=== PATIENT | male | born 1935 | race Caucasian/White ===

== ENCOUNTER 2017-05-04 21:39 | Observation (INO) | payer MEDICARE, OTHER ==
[2017-05-04] MEDS ORDERED: Sodium Chloride 0.9% 10 ML Syringe FLUSH PRN (22:09)
[2017-05-04] MEDS ORDERED: Sodium Chloride 0.9% 1,000 ML IV STA (22:09)
[2017-05-04] MEDS ORDERED: Albuterol/Ipratropium 3.0-0.5 MG/3 ML Neb Soln NEB ONE (22:11)
--- NOTE | 2017-05-04 23:05 | EDM.PDOC ---
ED HPI GENERAL MEDICAL PROBLEM - General Chief Complaint: Gastrointestinal Problem Stated Complaint: BLOOD IN STOOL,FACIAL NUMBNESS Time Seen by Provider: 05/04/17 22:03 Source of Information: Reports: Patient, Family History Limitations: Reports: No Limitations - History of Present Illness INITIAL COMMENTS - FREE TEXT/NARRATIVE: The patient presents with rectal bleeding. The patient was at home and his legs felt week all day. He felt like he had to use the bathroom he went there and nearly fell because he was lightheaded. He had a bowel movement and there was blood. There was blood mixed with stool. He had another bowel movement about 1/2 hour later and there was still blood with stool. He has a history of hemorrhoids. He is on plavix for stents he had placed in 2010. In 2010, after the stents he had a GI bleed. He had to go back to [place] for help. He denies hitting his head and he had no headache. He has COPD and he has shortness of breath but no fever, cough, congestion or runny nose. He has no chest pain and he has no abdominal pain, nausea or vomiting. Onset: Gradual Duration: Hour(s): Severity: Moderate Improves with: Reports: None Worsens with: Reports: None Associated Symptoms: Reports: Shortness of Breath. Denies: Chest Pain, Cough, Fever/Chills, Headaches, Nausea/Vomiting - Related Data Allergies Allergy/AdvReac Type Severity Reaction Status Date / Time No Known Allergies Allergy Verified 05/13/15 10:06 Home Meds: Home Meds Clopidogrel [Plavix] 75 mg PO DAILY 05/04/17 [History] Losartan Potassium [Cozaar] 50 mg PO DAILY 05/04/17 [History] Metoprolol Tartrate 25 mg PO BID 05/04/17 [History] Past Medical History Cardiovascular History: Reports: Hypertension, Stents Respiratory History: Reports: COPD Gastrointestinal History: Reports: GI Bleed, Hemorrhoids Musculoskeletal History: Reports: Arthritis - Past Surgical History GI Surgical History: Reports: Colonoscopy, EGD Social & Family History - Tobacco Use Smoking Status *Q: Former Smoker Used Tobacco, but Quit: Yes Month Tobacco Last Used: 2010 - Caffeine Use Caffeine Use: Reports: Coffee, Soda, Tea - Recreational Drug Use Recreational Drug Use: No ED ROS GENERAL - Review of Systems Review Of Systems: See Below Constitutional: Reports: Weakness. Denies: Fever, Chills HEENT: Reports: No Symptoms Respiratory: Reports: Shortness of Breath. Denies: Cough Cardiovascular: Reports: Lightheadedness. Denies: Chest Pain Endocrine: Reports: No Symptoms GI/Abdominal: Reports: Bloody Stool. Denies: Abdominal Pain, Nausea, Vomiting : Reports: No Symptoms Musculoskeletal: Reports: No Symptoms ED EXAM, GI/ABD - Physical Exam Exam: See Below Exam Limited By: No Limitations General Appearance: Alert, No Apparent Distress Ears: Normal External Exam Nose: Normal Inspection Head: Atraumatic, Normocephalic Neck: Normal Inspection Respiratory/Chest: No Respiratory Distress, Decreased Breath Sounds, Wheezing Cardiovascular: Regular Rate, Rhythm, No Edema, No Murmur GI/Abdominal Exam: Soft, Non-Tender, No Organomegaly, No Mass Rectal (Males) Exam: Hemorrhoids (Multiple hemorrhoids with one that appears to have been bleeding) Back Exam: Normal Inspection Extremities: Normal Inspection EKG INTERPRETATION EKG Date: 05/04/17 Time: 21:57 Rhythm: NSR Rate (Beats/Min): 76 [place]: LAD-Left [place] Deviation P-Wave: Present QRS: Normal ST-T: Normal QT: Normal Course - Vital Signs Last Recorded V/S: Last Vital Signs Temp 95.3 F L 05/04/17 21:51 Pulse 78 05/04/17 21:51 Resp 20 05/04/17 21:51 BP 84/56 L 05/04/17 21:51 Pulse Ox 91 L 05/04/17 21:51 - Orders/Labs/Meds Orders: Active Orders 24 hr Category Date Time Status EKG Documentation Completion [RC] STAT Care 05/04/17 22:09 Active Peripheral IV Care [RC] . DIRECTED Care 05/04/17 22:10 Active RT Aerosol Therapy [RC] ASDIRECTED Care 05/04/17 22:11 Active CXR [Chest 1V Frontal] [CR] Stat Exams 05/04/17 22:36 Taken PATIENT RETYPE [BBK] Stat Lab 05/04/17 21:50 Results TYPE AND SCREEN [BBK] Stat Lab 05/04/17 21:50 Results Sodium Chloride 0.9% [Saline Flush] Med 05/04/17 22:09 Active 10 ml FLUSH ASDIRECTED PRN Peripheral IV Insertion Adult [OM.PC] Stat Oth 05/04/17 22:09 Ordered Medication Orders Sodium Chloride (Saline Flush) 10 ml FLUSH ASDIRECTED PRN PRN Reason: Keep Vein Open Last Admin: 05/04/17 22:25 Dose: 10 ml Labs: Laboratory Tests 05/04/17 05/04/17 05/04/17 Range/Units 21:50 21:50 21:50 WBC 17.81 H (4.23-9.07) K/mm3 RBC 4.53 L (4.63-6.08) M/mm3 Hgb 13.5 L (13.7-17.5) gm/L Hct 41.9 (40.1-51.0) % MCV 92.5 H (79.0-92.2) fl MCH 29.8 (25.7-32.2) pg MCHC 32.2 (32.2-35.5) g/dl RDW Std Deviation 43.0 (35.1-43.9) fL Plt Count 523 H (163-337) K/mm3 MPV 9.9 (9.4-12.3) fl Neut % (Auto) 74.9 H (34.0-67.9) % Lymph % (Auto) 17.3 L (21.8-53.1) % [place] % (Auto) 5.7 (5.3-12.2) % Eos % (Auto) 1.3 (0.8-7.0) Baso % (Auto) 0.4 (0.1-1.2) % Neut # (Auto) 13.32 H (1.78-5.38) K/mm3 Lymph # (Auto) 3.08 (1.32-3.57) K/mm3 [place] # (Auto) 1.02 H (0.30-0.82) K/mm3 Eos # (Auto) 0.24 (0.04-0.54) K/mm3 Baso # (Auto) 0.08 (0.01-0.08) K/mm3 Sodium 140 (136-145) mEq/L Potassium 5.3 H (3.5-5.1) mEq/L Chloride 103 (98-107) mEq/L Carbon Dioxide 24 (21-32) mEq/L Anion Gap 18.3 H (5-15) BUN 35 H (7-18) mg/dL Creatinine 1.7 H (0.7-1.3) mg/dL Est Cr Clr Drug Dosing 35.19 mL/min Estimated GFR (MDRD) 39 (>60) mL/min BUN/Creatinine Ratio 20.6 H (14-18) Glucose 194 H (83-115) mg/dL Calcium 8.8 (8.5-10.1) mg/dL Total Bilirubin 0.6 (0.2-1.0) mg/dL AST 14 L (15-37) U/L ALT 20 (16-63) U/L Alkaline Phosphatase 73 (46-116) U/L Troponin I < 0.017 (0.00-0.056) ng/mL Total Protein 6.1 L (6.4-8.2) g/dl Albumin 3.0 L (3.4-5.0) g/dl Globulin 3.1 gm/dL Albumin/Globulin Ratio 1.0 (1-2) Blood Type O POSITIVE Gel Antibody Screen Negative Meds: Medications Generic Name Dose Route Start Last Admin Trade Name Freq PRN Reason Stop Dose Admin Sodium Chloride 10 ml 05/04/17 22:09 05/04/17 22:25 Saline Flush FLUSH 10 ml ASDIRECTED PRN Administration Keep Vein Open Discontinued Medications Generic Name Dose Route Start Last Admin Trade Name Freq PRN Reason Stop Dose Admin Albuterol/Ipratropium 3 ml 05/04/17 22:11 05/04/17 22:28 Duoneb 3.0-0.5 Mg/3 Ml NEB 05/04/17 22:12 3 ml ONETIME ONE Administration Sodium Chloride 1,000 mls @ 1,000 mls/hr 05/04/17 22:09 05/04/17 23:02 Normal Saline IV 05/04/17 23:08 125 mls/hr .BOLUS STA Infusion - Re-Assessments/Exams Free Text/Narrative Re-Assessment/Exam: 05/04/17 23:07 I ordered an IV NS 500mL bolus, oxygen, duoneb, labs and type and screen. 05/04/17 23:30 His WBC was elevated at 17.81. His CXR shows no infiltrate. I am not sure why that is elevated at this time. His Hgb was 13.5. That is near normal. His platelets are elevated at 523. His K was elevated at 5.3. His anion gap is elevated at 18.3. His creatinine is elevated at 1.7. His glucose was elevated at 194. His troponin is negative. He did not have any more bleeding. I feel he needs to be admitted observation so I can check on his Hgb and see if he is bleeding more. I will admit him to the hospitalist service. Departure - Departure Time of Disposition: 23:45 Disposition: Refer to Observation Condition: Fair Clinical Impression: Shortness of breath GI bleeding Qualifiers: GI bleed type/associated pathology: unspecified peptic ulcer Qualified Code(s) : K27.4 - Chronic or unspecified peptic ulcer, site unspecified, with hemorrhage COPD (chronic obstructive pulmonary disease) Qualifiers: COPD type: unspecified COPD Qualified Code(s): J44.9 - Chronic obstructive pulmonary disease, unspecified - Discharge Information Referrals: Simon Madrid MD [Primary Care Provider] - Forms: ED Department Discharge - My Orders Last 24 Hours: My Active Orders 05/04/17 21:50 PATIENT RETYPE [BBK] Stat TYPE AND SCREEN [BBK] Stat 05/04/17 22:09 EKG Documentation Completion [RC] STAT Sodium Chloride 0.9% [Saline Flush] 10 ml FLUSH ASDIRECTED PRN Peripheral IV Insertion Adult [OM.PC] Stat 05/04/17 22:10 Peripheral IV Care [RC] . DIRECTED 05/04/17 22:11 RT Aerosol Therapy [RC] ASDIRECTED 05/04/17 22:36 CXR [Chest 1V Frontal] [CR] Stat - Assessment/Plan Last 24 Hours: My Active Orders 05/04/17 21:50 PATIENT RETYPE [BBK] Stat TYPE AND SCREEN [BBK] Stat 05/04/17 22:09 EKG Documentation Completion [RC] STAT Sodium Chloride 0.9% [Saline Flush] 10 ml FLUSH ASDIRECTED PRN Peripheral IV Insertion Adult [OM.PC] Stat 05/04/17 22:10 Peripheral IV Care [RC] . DIRECTED 05/04/17 22:11 RT Aerosol Therapy [RC] ASDIRECTED 05/04/17 22:36 CXR [Chest 1V Frontal] [CR] Stat
[2017-05-05] MEDS: Sodium Chloride 0.9% 1,000 ML IV SCH ×2 (03:53→12:42)
--- NOTE | 2017-05-05 07:58 | CR ---
Chest: Portable view of the chest was obtained. Comparison: No prior chest x-ray. Slight scarring is noted within the lateral left costophrenic angle. Lungs otherwise are clear. Heart size is normal. Tortuous thoracic aorta is seen. Bony structures are grossly intact. Impression: 1. Incidental findings. Nothing acute is seen. Diagnostic code #2
--- NOTE | 2017-05-05 15:52 | PCM.PN ---
- General Info Date of Service: 05/05/17 Functional Status: Reports: Ambulating, Urinating - Review of Systems General: Reports: No Symptoms HEENT: Reports: No Symptoms Pulmonary: Reports: No Symptoms Cardiovascular: Reports: No Symptoms Gastrointestinal: Reports: No Symptoms Genitourinary: Reports: No Symptoms Musculoskeletal: Reports: No Symptoms Skin: Reports: No Symptoms Neurological: Reports: No Symptoms Psychiatric: Reports: No Symptoms - Patient Data Vitals - Most Recent: Last Vital Signs Temp 36.8 C 05/05/17 09:41 Pulse 97 05/05/17 09:41 Resp 24 H 05/05/17 09:41 BP 106/66 05/05/17 09:41 Pulse Ox 90 L 05/05/17 10:03 Weight - Most Recent: 70.352 kg I&O - Last 24 Hours: Intake & Output 05/05/17 05/05/17 05/05/17 06:59 14:59 22:59 Intake Total 1260 Balance 1260 Lab Results Last 24 Hours: Laboratory Results - last 24 hr 05/05/17 05/05/17 Range/Units 03:55 10:06 Hgb 11.7 L 11.3 L (13.7-17.5) gm/L Hct 35.5 L 34.3 L (40.1-51.0) % Med Orders - Current: Current Medications Sodium Chloride (Normal Saline) 1,000 mls @ 125 mls/hr IV ASDIRECTED MARGIE Stop: 05/05/17 21:00 Last Admin: 05/05/17 12:42 Dose: 125 mls/hr Sodium Chloride (Saline Flush) 10 ml FLUSH ASDIRECTED PRN PRN Reason: Keep Vein Open Last Admin: 05/04/17 22:25 Dose: 10 ml Discontinued Medications Albuterol/Ipratropium (Duoneb 3.0-0.5 Mg/3 Ml) 3 ml NEB ONETIME ONE Stop: 05/04/17 22:12 Last Admin: 05/04/17 22:28 Dose: 3 ml Sodium Chloride (Normal Saline) 1,000 mls @ 1,000 mls/hr IV .BOLUS STA Stop: 05/04/17 23:08 Last Infusion: 05/04/17 23:02 Dose: 125 mls/hr - Exam Quality Assessment: Supplemental Oxygen, DVT Prophylaxis General: Alert, Oriented, Cooperative, No Acute Distress HEENT: Pupils Equal, Pupils Reactive, EOMI Neck: Supple, Trachea Midline, No JVD Lungs: Normal Respiratory Effort Cardiovascular: Regular Rate, Regular Rhythm GI/Abdominal Exam: Normal Bowel Sounds, Soft, Non-Tender, No Organomegaly, No Distention (Male) Exam: Deferred Back Exam: Normal Inspection Extremities: Normal Inspection Skin: Warm, Dry Neurological: No New Focal Deficit, Normal Gait, Normal Speech Psy/Mental Status: Alert, Normal Affect, Normal Mood - Problem List Review Problem List Initiated/Reviewed/Updated: Yes - Plan Plan:: Impression: GI bleed, hemodynamically stable with remote history Anemia, blood loss; Fe status unknown History of CAD/PCI on plavix Chronic COPD Plan: H/H serially T/C if Hgb<9.0 Gen surg consult with Dr Tinoco Daily labs Home meds Old MR re: CAD/PCI with stents DVT/GI prophylaxis CM/PT/OT consults
[2017-05-05] MEDS ORDERED: Metoprolol Tartrate 25 MG Tab PO SCH (16:00)
[2017-05-05] MEDS ORDERED: LOSARTAN POTASSIUM 50 MG PO SCH (16:00)
[2017-05-05] MEDS: Acetaminophen 325 MG Tab PO PRN (21:16)
--- NOTE | 2017-05-06 15:01 | PCM.PN ---
- General Info Date of Service: 05/06/17 Functional Status: Reports: Pain Controlled, Tolerating Diet, Ambulating, Urinating - Review of Systems General: Reports: No Symptoms HEENT: Reports: No Symptoms Pulmonary: Reports: No Symptoms Cardiovascular: Reports: No Symptoms Gastrointestinal: Reports: No Symptoms Genitourinary: Reports: No Symptoms Musculoskeletal: Reports: No Symptoms Skin: Reports: No Symptoms Neurological: Reports: No Symptoms Psychiatric: Reports: No Symptoms - Patient Data Vitals - Most Recent: Last Vital Signs Temp 36.7 C 05/06/17 08:35 Pulse 78 05/06/17 09:18 Resp 16 05/06/17 08:35 BP 113/58 L 05/06/17 08:35 Pulse Ox 92 L 05/06/17 09:18 Weight - Most Recent: 70.352 kg I&O - Last 24 Hours: Intake & Output 05/06/17 05/06/17 05/06/17 06:59 14:59 22:59 Intake Total 500 360 Balance 500 360 Lab Results Last 24 Hours: Laboratory Results - last 24 hr 05/06/17 05/06/17 Range/Units 09:40 09:40 WBC 14.05 H (4.23-9.07) K/mm3 RBC 3.43 L (4.63-6.08) M/mm3 Hgb 10.3 L (13.7-17.5) gm/L Hct 31.4 L (40.1-51.0) % MCV 91.5 (79.0-92.2) fl MCH 30.0 (25.7-32.2) pg MCHC 32.8 (32.2-35.5) g/dl RDW Std Deviation 41.5 (35.1-43.9) fL Plt Count 331 (163-337) K/mm3 MPV 9.5 (9.4-12.3) fl Neut % (Auto) 85.1 H (34.0-67.9) % Lymph % (Auto) 7.8 L (21.8-53.1) % [place] % (Auto) 5.4 (5.3-12.2) % Eos % (Auto) 1.0 (0.8-7.0) Baso % (Auto) 0.4 (0.1-1.2) % Neut # (Auto) 11.97 H (1.78-5.38) K/mm3 Lymph # (Auto) 1.09 L (1.32-3.57) K/mm3 [place] # (Auto) 0.76 (0.30-0.82) K/mm3 Eos # (Auto) 0.14 (0.04-0.54) K/mm3 Baso # (Auto) 0.05 (0.01-0.08) K/mm3 Manual Slide Review Abnormal smear Sodium 136 (136-145) mEq/L Potassium 4.3 (3.5-5.1) mEq/L Chloride 102 (98-107) mEq/L Carbon Dioxide 26 (21-32) mEq/L Anion Gap 12.3 (5-15) BUN 18 (7-18) mg/dL Creatinine 1.2 (0.7-1.3) mg/dL Est Cr Clr Drug Dosing 48.82 mL/min Estimated GFR (MDRD) 58 (>60) mL/min BUN/Creatinine Ratio 15.0 (14-18) Glucose 126 H (83-115) mg/dL Calcium 8.0 L (8.5-10.1) mg/dL Magnesium 1.7 L (1.8-2.4) mg/dl Med Orders - Current: Current Medications Acetaminophen (Tylenol) 650 mg PO Q4H PRN PRN Reason: Fever Last Admin: 05/05/17 21:16 Dose: 650 mg Metoprolol Tartrate (Lopressor) 12.5 mg PO BID MARGIE Last Admin: 05/06/17 06:50 Dose: 12.5 mg Sodium Chloride (Saline Flush) 10 ml FLUSH ASDIRECTED PRN PRN Reason: Keep Vein Open Last Admin: 05/04/17 22:25 Dose: 10 ml Discontinued Medications Albuterol/Ipratropium (Duoneb 3.0-0.5 Mg/3 Ml) 3 ml NEB ONETIME ONE Stop: 05/04/17 22:12 Last Admin: 05/04/17 22:28 Dose: 3 ml Sodium Chloride (Normal Saline) 1,000 mls @ 1,000 mls/hr IV .BOLUS STA Stop: 05/04/17 23:08 Last Infusion: 05/04/17 23:02 Dose: 125 mls/hr Sodium Chloride (Normal Saline) 1,000 mls @ 125 mls/hr IV ASDIRECTED [facility] Stop: 05/05/17 21:00 Last Admin: 05/05/17 12:42 Dose: 125 mls/hr Metoprolol Tartrate (Lopressor) 25 mg PO BID [facility] Last Admin: 05/05/17 16:43 Dose: Not Given Non-Formulary Medication (Losartan Potassium) 50 mg PO DAILY [facility] Last Admin: 05/05/17 16:44 Dose: Not Given - Exam Quality Assessment: DVT Prophylaxis General: Alert, Oriented, Cooperative, No Acute Distress HEENT: Pupils Equal, Pupils Reactive, EOMI Neck: Supple, Trachea Midline Lungs: Normal Respiratory Effort Cardiovascular: Regular Rate, Regular Rhythm GI/Abdominal Exam: Normal Bowel Sounds, Soft, Non-Tender, No Organomegaly, No Distention (Male) Exam: Deferred Back Exam: Normal Inspection Extremities: Normal Inspection, Normal Range of Motion Skin: Warm Neurological: No New Focal Deficit Psy/Mental Status: Alert, Normal Affect, Normal Mood - Problem List Review Problem List Initiated/Reviewed/Updated: Yes - My Orders Last 24 Hours: My Active Orders 05/05/17 16:45 Metoprolol Tartrate [Lopressor] 12.5 mg PO BID 05/05/17 20:54 Acetaminophen [Tylenol] 650 mg PO Q4H PRN 05/06/17 12:26 Patient Status [ADT] Routine 05/06/17 18:00 HGB [HEMOGLOBIN] [HEME] Routine RED BLOOD CELLS LP [BBK] Routine 05/07/17 05:11 BASIC METABOLIC PANEL,BMP [CHEM] Routine CBC WITH AUTO DIFF [HEME] Routine MG [MAGNESIUM] [CHEM] Routine - Plan Plan:: Impression: GI bleed, hemodynamically stable with remote history Anemia, blood loss; Fe will start empiric treatment 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 Monitor additional 24 hours with drift downward of Hgb; transfuse as needed.
[2017-05-06] MEDS ORDERED: Magnesium Sulfate/Water 2 GM in Premix Bag 1 BAG IV ONE (19:30)
[2017-05-06] MEDS: Acetaminophen 325 MG Tab PO PRN (20:15)
[2017-05-07] MEDS ORDERED: Benzonatate 100 MG Cap PO PRN (08:44)
[2017-05-07] MEDS ORDERED: guaiFENesin/Dextromethorphan 100-10 MG/5 ML Soln 5 ML Cup PO PRN (08:45)
[2017-05-07] MEDS ORDERED: Clopidogrel 75 MG Tab PO SCH (09:00)
[2017-05-07] MEDS ORDERED: FISH OIL PO SCH (09:00)
[2017-05-07] MEDS ORDERED: COLESTIPOL PO SCH (09:00)
[2017-05-07] MEDS ORDERED: UBIDECARENONE PO SCH (09:00)
[2017-05-07] MEDS ORDERED: Doxycycline 100 MG Cap PO SCH (09:00)
[2017-05-07] MEDS ORDERED: [UNRECOGNIZED DRUG - OTHER] PO SCH (09:00)
[2017-05-07] MEDS ORDERED: EPA PO SCH (09:00)
[2017-05-07] MEDS ORDERED: OMEGA PO SCH (09:00)
[2017-05-07] MEDS ORDERED: DHA PO SCH (09:00)
[2017-05-07 09:02] VITALS: BP 123/76
--- NOTE | 2017-05-07 12:06 | PCM.DCSUM1 ---
Discharge Summary - Hospital Course Free Text/Narrative:: 81 year old male who reports a history of GI bleeds; the presentation on this admission was similar to a remote episode. He states that he has had hemorrhoids and had a location in his Colon which bleed in the past. A conservative approach was followed, Hgb was checked; he did not require a blood transfusion during his hospital stay. Antiplatelet therapy was suspended to reconsidered as an outpatient, he has a remote history of PCI and has been on ASA and Plavix which were held; reconsideration for resuming is suggested as an outpatient. the patient did not have his stent card for location and type of stent. However he stated that they were placed over 5-6 years ago. The patient developed a cough and was discharged to home with a prescription for doxycycline and tessalon perles. He is expected to see his PCP as well as gen surg, Dr Irvin as an outpatient. Primary Dx GI bleed, unspecified Anemia, Fe Bronchitis History of CAD/PCI Disposition Home Diet Heart Healthy Meds Resume previous, plavix/ASA on hold--reassess as outpatient Ferrous Sulfate 325 mg daily Doxycycline 100 mg BID Tesalon Perles 100 mg TID prn cough Robitussin DM 10 cc q 6 hours prn cough Follow Up PCP 1-[address] Irvin 1 week - Discharge Data Discharge Date: 05/07/17 Discharge Disposition: Home, Self-Care 01 Condition: Good - Patient Instructions Diet: Heart Healthy Diet Activity: As Tolerated Driving: May Drive Today Showering/Bathing: May Shower Notify Provider of: Fever, Nausea and/or Vomiting - Discharge Plan Prescriptions/Med Rec: Acetaminophen [Tylenol] 650 mg PO Q4H PRN #100 tablet PRN Reason: Fever Benzonatate [Tessalon Perle] 100 mg PO TID PRN #28 capsule PRN Reason: Cough Dextromethorphan/guaiFENesin [Robitussin DM] 10 ml PO Q6H PRN #240 cup PRN Reason: Cough Doxycycline Calcium [IMW: Doxycycline] 100 mg PO BID #14 capsule Ferrous Sulfate 325 mg PO WITHBREAKFAST #100 tablet Home Medications: Home Meds Losartan Potassium [Cozaar] 50 mg PO DAILY 05/04/17 [History] Metoprolol Tartrate 25 mg PO BID 05/04/17 [History] Colestipol [Colestipol HCl] 2 tab PO BID 05/05/17 [History] [place]-3/DHA/Epa/Fish Oil [Fish Oil 1,000 mg Softgel] 1 cap PO DAILY 05/05/17 [ History] Ubidecarenone [Co Q-10] 1 cap PO DAILY 05/05/17 [History] Acetaminophen [Tylenol] 650 mg PO Q4H PRN #100 tablet 05/07/17 [Rx] Benzonatate [Tessalon Perle] 100 mg PO TID PRN #28 capsule 05/07/17 [Rx] Dextromethorphan/guaiFENesin [Robitussin DM] 10 ml PO Q6H PRN #240 cup 05/07/17 [Rx] Doxycycline Calcium [IMW: Doxycycline] 100 mg PO BID #14 capsule 05/07/17 [Rx] Ferrous Sulfate 325 mg PO WITHBREAKFAST #100 tablet 05/07/17 [Rx] Patient Handouts: Anemia, Nonspecific, Gastrointestinal Bleeding Forms: ED Department Discharge Referrals: Bryan Irvin MD [Physician] - (Please call clinic tomorrow and make a follow -up appointment in 1-2 weeks.) Simon Madrid MD [Primary Care Provider] - (Please call clinic tomorrow and make a follow-up appointment in 1-2 weeks.) - Discharge Summary/Plan Comment DC Time >30 min.: No - General Info Functional Status: Reports: Tolerating Diet, Ambulating, Urinating - Review of Systems General: Reports: No Symptoms HEENT: Reports: No Symptoms Pulmonary: Reports: Cough Cardiovascular: Reports: No Symptoms Gastrointestinal: Reports: No Symptoms Genitourinary: Reports: No Symptoms Musculoskeletal: Reports: No Symptoms Skin: Reports: No Symptoms Neurological: Reports: No Symptoms Psychiatric: Reports: No Symptoms - Patient Data Vitals - Most Recent: Last Vital Signs Temp 37.7 C 05/07/17 06:15 Pulse 82 05/07/17 09:00 Resp 18 05/07/17 08:56 BP 123/76 05/07/17 09:00 Pulse Ox 92 L 05/07/17 08:56 Weight - Most Recent: 68.946 kg I&O - Last 24 hours: Intake & Output 05/06/17 05/07/17 05/07/17 22:59 06:59 14:59 Intake Total 810 850 Balance 810 850 Lab Results - Last 24 hrs: Laboratory Results - last 24 hr 05/06/17 05/07/17 05/07/17 Range/Units 18:30 06:42 06:42 WBC 11.23 H (4.23-9.07) K/mm3 RBC 3.54 L (4.63-6.08) M/mm3 Hgb 10.4 L 10.5 L (13.7-17.5) gm/L Hct 32.3 L (40.1-51.0) % MCV 91.2 (79.0-92.2) fl MCH 29.7 (25.7-32.2) pg MCHC 32.5 (32.2-35.5) g/dl RDW Std Deviation 41.2 (35.1-43.9) fL Plt Count 367 H (163-337) K/mm3 MPV 9.9 (9.4-12.3) fl Neut % (Auto) 67.9 (34.0-67.9) % Lymph % (Auto) 20.0 L (21.8-53.1) % [place] % (Auto) 8.4 (5.3-12.2) % Eos % (Auto) 2.8 (0.8-7.0) Baso % (Auto) 0.5 (0.1-1.2) % Neut # (Auto) 7.62 H (1.78-5.38) K/mm3 Lymph # (Auto) 2.25 (1.32-3.57) K/mm3 [place] # (Auto) 0.94 H (0.30-0.82) K/mm3 Eos # (Auto) 0.32 (0.04-0.54) K/mm3 Baso # (Auto) 0.06 (0.01-0.08) K/mm3 Sodium 137 (136-145) mEq/L Potassium 4.2 (3.5-5.1) mEq/L Chloride 103 (98-107) mEq/L Carbon Dioxide 29 (21-32) mEq/L Anion Gap 9.2 (5-15) BUN 12 (7-18) mg/dL Creatinine 1.1 (0.7-1.3) mg/dL Est Cr Clr Drug Dosing 52.41 mL/min Estimated GFR (MDRD) > 60 (>60) mL/min BUN/Creatinine Ratio 10.9 L (14-18) Glucose 95 (83-115) mg/dL Calcium 8.5 (8.5-10.1) mg/dL Magnesium 2.3 (1.8-2.4) mg/dl ORLY Results - Last 24 hrs: Microbiology 05/07/17 08:50 Influenza Type A Antigen Screen - Final Nasopharyngeal Swab - Nare, Left NEGATIVE INFLUENZA A VIRUS AG Influenza Type B Antigen Screen - Final NEGATIVE INFLUENZA B VIRUS AG Med Orders - Current: Current Medications Acetaminophen (Tylenol) 650 mg PO Q4H PRN PRN Reason: Fever Last Admin: 05/06/17 20:15 Dose: 650 mg Benzonatate (Tessalon Perles) 100 mg PO TID PRN PRN Reason: Cough Clopidogrel Bisulfate (Plavix) 75 mg PO DAILY [facility] Doxycycline Hyclate (Vibramycin) 100 mg PO BID [facility] Last Admin: 05/07/17 09:01 Dose: 100 mg Ferrous Sulfate (Ferrous Sulfate) 325 mg PO WITHBREAKFAST [facility] Guaifenesin/Phenylephrine HCl (Robitussin Dm) 10 ml PO Q6H PRN PRN Reason: Cough Metoprolol Tartrate (Lopressor) 12.5 mg PO BID [facility] Last Admin: 05/07/17 09:00 Dose: 12.5 mg Non-Formulary Medication (Colestipol) 2 tab PO BID [facility] Non-Formulary Medication ([place]-3/Dha/Epa/Fish Oil [Fish Oil 1,000 Mg Softgel]) 1 cap PO DAILY [facility] Non-Formulary Medication (Ubidecarenone) 1 cap PO DAILY [facility] Sodium Chloride (Saline Flush) 10 ml FLUSH ASDIRECTED PRN PRN Reason: Keep Vein Open Last Admin: 05/04/17 22:25 Dose: 10 ml Discontinued Medications Albuterol/Ipratropium (Duoneb 3.0-0.5 Mg/3 Ml) 3 ml NEB ONETIME ONE Stop: 05/04/17 22:12 Last Admin: 05/04/17 22:28 Dose: 3 ml Sodium Chloride (Normal Saline) 1,000 mls @ 1,000 mls/hr IV .BOLUS STA Stop: 05/04/17 23:08 Last Infusion: 05/04/17 23:02 Dose: 125 mls/hr Sodium Chloride (Normal Saline) 1,000 mls @ 125 mls/hr IV ASDIRECTED [facility] Stop: 05/05/17 21:00 Last Admin: 05/05/17 12:42 Dose: 125 mls/hr Magnesium Sulfate 2 gm/ Premix 50 mls @ 25 mls/hr IV ONETIME ONE Stop: 05/06/17 21:29 Last Admin: 05/06/17 20:14 Dose: 25 mls/hr Metoprolol Tartrate (Lopressor) 25 mg PO BID [facility] Last Admin: 05/05/17 16:43 Dose: Not Given Non-Formulary Medication (Losartan Potassium) 50 mg PO DAILY [facility] Last Admin: 05/05/17 16:44 Dose: Not Given - Exam Quality Assessment: Reports: DVT Prophylaxis General: Reports: Alert, Oriented, Cooperative, No Acute Distress HEENT: Reports: Pupils Equal, Pupils Reactive, EOMI Neck: Reports: Trachea Midline, No JVD Lungs: Reports: Normal Respiratory Effort Cardiovascular: Reports: Regular Rate, Regular Rhythm GI/Abdominal Exam: Normal Bowel Sounds, No Organomegaly, No Distention (Male) Exam: Deferred Rectal (Males) Exam: Deferred Back Exam: Reports: Normal Inspection Extremities: Normal Inspection, Normal Range of Motion, Non-Tender Skin: Reports: Warm Neurological: Reports: No New Focal Deficit Psy/Mental Status: Reports: Alert, Normal Affect, Normal Mood *Q Meaningful Use (DIS) - VTE *Q VTE Criteria *Q: - Stroke *Q Stroke Criteria *Q: - AMI *Q AMI Criteria *Q:
--- NOTE | 2017-05-08 06:28 | PCM.HP ---
H&P History of Present Illness - General Date of Service: 05/04/17 Admit Problem/Dx: Shortness of breath, GI bleed and COPD Source of Information: Patient History Limitations: Reports: No Limitations - History of Present Illness Initial Comments - Free Text/Narative: The patient presents with rectal bleeding. He says his legs felt week all day. He felt like he had to have a bowel movement this evening and he went and there was 1/2 blood with feces. He went again about 1/2 hour later and he found the same. He felt lightheaded at that time. He has a history of hemorrhoids. He is on plavix for stents in 2010. He had a GI bleed that year also. He has COPD and some shortness of breath with it. He denies fever, cough , congestion or runny nose. He has no chest pain, abdominal pain, nausea or vomiting. He was seen in the ER. His first Hgb was near normal at 13.5. I gave him a breathing treatment for his wheezing. I felt he needed to be admitted. He was admitted to myself and the hospitalist service with the intent of the hospitalist service to take over in the morning. Onset of Symptoms: Reports: Today, Sudden Duration of Symptoms: Reports: Hour(s): Severity: Moderate Improves with: Reports: None Worsens with: Reports: None Associated Symptoms: Reports: Shortness of Breath. Denies: Chest Pain, Cough, Fever/Chills, Headaches, Nausea/Vomiting - Related Data Allergies/Adverse Reactions: Allergies Allergy/AdvReac Type Severity Reaction Status Date / Time No Known Allergies Allergy Verified 05/13/15 10:06 Home Medications: Home Meds Losartan Potassium [Cozaar] 50 mg PO DAILY 05/04/17 [History] Metoprolol Tartrate 25 mg PO BID 05/04/17 [History] Colestipol [Colestipol HCl] 2 tab PO BID 05/05/17 [History] [place]-3/DHA/Epa/Fish Oil [Fish Oil 1,000 mg Softgel] 1 cap PO DAILY 05/05/17 [ History] Ubidecarenone [Co Q-10] 1 cap PO DAILY 05/05/17 [History] Acetaminophen [Tylenol] 650 mg PO Q4H PRN #100 tablet 05/07/17 [Rx] Benzonatate [Tessalon Perle] 100 mg PO TID PRN #28 capsule 05/07/17 [Rx] Dextromethorphan/guaiFENesin [Robitussin DM] 10 ml PO Q6H PRN #240 cup 05/07/17 [Rx] Doxycycline Calcium [IMW: Doxycycline] 100 mg PO BID #14 capsule 05/07/17 [Rx] Ferrous Sulfate 325 mg PO WITHBREAKFAST #100 tablet 05/07/17 [Rx] Past Medical History Cardiovascular History: Reports: Hypertension, Stents, Other (See Below) Other Cardiovascular History: Stents put in in September 2010 Respiratory History: Reports: COPD Gastrointestinal History: Reports: GI Bleed, Hemorrhoids Musculoskeletal History: Reports: Arthritis - Past Surgical History GI Surgical History: Reports: Colonoscopy, EGD Social & Family History - Tobacco Use Smoking Status *Q: Former Smoker Used Tobacco, but Quit: Yes Month Tobacco Last Used: 2010 - Caffeine Use Caffeine Use: Reports: Coffee, Soda, Tea - Recreational Drug Use Recreational Drug Use: No H&P Review of Systems - Review of Systems: Review Of Systems: See Below General: Reports: Weakness HEENT: Reports: No Symptoms Pulmonary: Reports: Shortness of Breath. Denies: Cough Cardiovascular: Reports: No Symptoms Gastrointestinal: Reports: Bloody Stool. Denies: Abdominal Pain, Diarrhea, Nausea, Vomiting Genitourinary: Reports: No Symptoms Musculoskeletal: Reports: No Symptoms Skin: Reports: No Symptoms Psychiatric: Reports: No Symptoms Neurological: Reports: No Symptoms Exam - Exam Exam: See Below - Vital Signs Vital Signs: Last Vital Signs Temp 99.9 F 05/07/17 06:15 Pulse 82 05/07/17 09:00 Resp 18 05/07/17 08:56 BP 123/76 05/07/17 09:00 Pulse Ox 92 L 05/07/17 08:56 Weight: 70.352 kg - Exam General: Alert, Oriented HEENT: EOMI Neck: Supple, Trachea Midline Lungs: Decreased Breath Sounds, Wheezing Cardiovascular: Regular Rate, Regular Rhythm GI/Abdominal Exam: Soft, Non-Tender, No Organomegaly, No Distention Rectal (Males) Exam: Hemorrhoids (With one that appears to be bleeding) Back Exam: Normal Inspection Extremities: Normal Inspection - Patient Data Lab Results Last 24 hrs: Laboratory Results - last 24 hr 05/07/17 05/07/17 Range/Units 06:42 06:42 WBC 11.23 H (4.23-9.07) K/mm3 RBC 3.54 L (4.63-6.08) M/mm3 Hgb 10.5 L (13.7-17.5) gm/L Hct 32.3 L (40.1-51.0) % MCV 91.2 (79.0-92.2) fl MCH 29.7 (25.7-32.2) pg MCHC 32.5 (32.2-35.5) g/dl RDW Std Deviation 41.2 (35.1-43.9) fL Plt Count 367 H (163-337) K/mm3 MPV 9.9 (9.4-12.3) fl Neut % (Auto) 67.9 (34.0-67.9) % Lymph % (Auto) 20.0 L (21.8-53.1) % Sebastian % (Auto) 8.4 (5.3-12.2) % Eos % (Auto) 2.8 (0.8-7.0) Baso % (Auto) 0.5 (0.1-1.2) % Neut # (Auto) 7.62 H (1.78-5.38) K/mm3 Lymph # (Auto) 2.25 (1.32-3.57) K/mm3 Sebastian # (Auto) 0.94 H (0.30-0.82) K/mm3 Eos # (Auto) 0.32 (0.04-0.54) K/mm3 Baso # (Auto) 0.06 (0.01-0.08) K/mm3 Sodium 137 (136-145) mEq/L Potassium 4.2 (3.5-5.1) mEq/L Chloride 103 (98-107) mEq/L Carbon Dioxide 29 (21-32) mEq/L Anion Gap 9.2 (5-15) BUN 12 (7-18) mg/dL Creatinine 1.1 (0.7-1.3) mg/dL Est Cr Clr Drug Dosing 52.41 mL/min Estimated GFR (MDRD) > 60 (>60) mL/min BUN/Creatinine Ratio 10.9 L (14-18) Glucose 95 (83-115) mg/dL Calcium 8.5 (8.5-10.1) mg/dL Magnesium 2.3 (1.8-2.4) mg/dl Result Diagrams: 05/07/17 06:42 05/07/17 06:42 Nick Results Last 24 hrs: Microbiology 05/07/17 08:50 Influenza Type A Antigen Screen - Final Nasopharyngeal Swab - Nare, Left NEGATIVE INFLUENZA A VIRUS AG Influenza Type B Antigen Screen - Final NEGATIVE INFLUENZA B VIRUS AG *Q Meaningful Use (ADM) - VTE *Q VTE Criteria *Q: - Stroke *Q Stroke Criteria *Q: - AMI *Q AMI Criteria *Q: Problem List Initiated/Reviewed/Updated: Yes Orders Last 24hrs: Active Orders 24 hr Category Date Time Status Ready for Discharge [RC] PER UNIT ROUTINE Care 05/07/17 08:53 Active Assessment/Plan Comment:: Impression: GI bleed, hemodynamically stable with remote history Anemia, blood loss; Fe will start empiric treatment 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
[2017-05-08] MEDS ORDERED: Ferrous Sulfate 325 MG Tab PO SCH (07:00)
--- NOTE | 2017-05-08 08:21 | CONS ---
CONSULTING PHYSICIAN: Quincy Walls DATE OF CONSULTATION: 05/06/2017 Thank you for asking me see this nice gentleman in consultation. As you know, he is admitted for lower GI bleeding. He states that approximately 2 days ago, he had 2 episodes of gushing bright red fluid emanated from his anus while defecating. The first one was accompanied by some stool and the second one was just blood. He came to the hospital and yesterday did have a stool with small amount of blood in it, but mostly stooland oy small amounts of blood with subsequent stools. He was examined in the ER by Dr. Diane and who felt he did have some hemorrhoidal disease, which might be the source of his bleeding. However, the bleeding was bright red blood and seemed in fairly large volumes. Pertinent to his history is that approximately 7 years ago, he underwent some lower GI bleeding after he had had an WI and had some stents placed and was on anticoagulants. The source of the bleeding turned out to be under GI endoscopy in [place], due to some sort of lesion of a vascular nature, which was present near where the small bowel enters the cecum. This was cauterized and he had no further problems from that. At that time, he had a normal colonoscopy, no polyps, or any other abnormalities. He has not had a colonoscopy since. Because of his cardiac stents, he is on a combination of Xarelt and plavix . On examination, his abdomen is soft. No masses. No tenderness. No other abnormalities. Rectal is not performed at this time since Dr. Diane had seen that and was unable to find an anoscope, which was fit into the wall apparatus to provide light. The situation of several possibilities, one is this is hemorrhoidal bleeding, which I doubt. The role of Plavix in his anticoagulation scheme for his stents is one possibility, but one of the other possibilities would be the recurrence of the lesion that was present in the cecum that was successfully cauterized 7 years ago. Another possibility might well be of bleeding from diverticulosis, not diverticulitis, and this can be of such in nature as would be compatible with his history. At present, I feel that he should have an upper and lower endoscopy with the facilities being able to do cautery, etc., and we will be making arrangements with Dr. Irvin to see him, and I believe Dr. Wright is also set that up or is planning on that. Today, he has had no further bleeding and he has had a normal bowel movement. I had a long talk with him and one of his sons, and they understand the situation and are happy, and he, by the patient's request, wishes to be colonoscoped by Dr. Irvin, if Dr. Irvin feels it should be done here or at least whatever his disposition would be. I thank you for asking me to see this nice gentleman in consultation. LAITH /[id number] MTDD
== END 2017-05-07 10:49 | disposition home or self-care (01) ==
LOC: JD.ED 21:39 → JD.MS 23:51
PROVIDERS: ADMIT Emergency Medicine; ATTEND Emergency Medicine
DX: K92.2 Gastrointestinal hemorrhage, unspecified (principal); D50.9 Iron deficiency anemia, unspecified; J40 Bronchitis, not specified as acute or chronic; I10 Essential (primary) hypertension; J44.9 Chronic obstructive pulmonary disease, unspecified; Z79.2 Long term (current) use of antibiotics; Z79.899 Other long term (current) drug therapy; Z87.891 Personal history of nicotine dependence
CPT/HCPCS: 36415; 71045; 80048; 80053; 83735; 84484; 85014; 85018; 85025; 86850; 86900; 86901; 86922; 87804; 93005; 96361; 96365; 96366; 99285; A9270; G0378; J7040; J7050; 93010; 96360; 99284-25; J3475

== ENCOUNTER 2017-05-22 06:37 | Day surgery (SDC) | payer MEDICARE, OTHER ==
[~2017-05-22 06:37] MED LIST: Lactated Ringers 1,000 ML IV SCH; Lidocaine 1%/Sod Bicarbonate in NS 8.4% 1 ML Syringe IV PRN; Sodium Chloride 0.9% 10 ML Syringe FLUSH PRN
[2017-05-22] MEDS ORDERED: Propofol 200 MG/20 ML SDV ONE ×3 (06:53→08:58)
[2017-05-22] MEDS ORDERED: Lidocaine 1% 4 ML ONE (06:53)
--- NOTE | 2017-05-22 07:40 | PCM.PREANE ---
Preanesthetic Assessment - Anesthesia/Transfusion/Family Hx Anesthesia History: Prior Anesthesia Without Reaction Family History of Anesthesia Reaction: No Transfusion History: Prior Transfusion Without Reaction Intubation History: Unknown - Review of Systems General: No Symptoms Pulmonary: Shortness of Breath, Cough Cardiovascular: No Symptoms Gastrointestinal: Abdominal Pain Neurological: No Symptoms Other: Reports: None - Physical Assessment NPO Status Date: 05/21/17 NPO Status Time: 22:00 Pulse: 89 O2 Sat by Pulse Oximetry: 97 Respiratory Rate: 20 Blood Pressure: 115/78 Temperature: 98.9 C ASA Class: 2 Mental Status: Alert & Oriented x3 Airway Class: Mallampati = 2 Dentition: Reports: Normal Dentition Thyro-Mental Finger Breadths: 3 Mouth Opening Finger Breadths: 3 ROM/Head Extension: Full Lungs: Clear to Auscultation, Normal Respiratory Effort Cardiovascular: Regular Rate, Regular Rhythm - Allergies Allergies/Adverse Reactions: Allergies Allergy/AdvReac Type Severity Reaction Status Date / Time [id number] Reductase Allergy Body Aches Verified 05/19/17 11:06 Inhibitor - Anesthesia Plan Beta Hortensia: Metoprolol Med Last Dose Date: 05/21/17 Med Last Dose Time: 08:30 - Acknowledgements Anesthesia Type Planned: MAC Pt an Appropriate Candidate for the Planned Anesthesia: Yes Alternatives and Risks of Anesthesia Discussed w Pt/Guardian: Yes Pt/Guardian Understands and Agrees with Anesthesia Plan: Yes PreAnesthesia Questionnaire HEENT History: Reports: Glaucoma Cardiovascular History: Reports: Heart Murmur, High Cholesterol, Hypertension, Stents, Other (See Below) Other Cardiovascular History: Stents put in in September 2010 Respiratory History: Reports: COPD, SOB Gastrointestinal History: Reports: GI Bleed, Hemorrhoids Genitourinary History: Reports: None C[employer] History: Reports: None Musculoskeletal History: Reports: Arthritis Neurological History: Reports: None Psychiatric History: Reports: None Endocrine/Metabolic History: Reports: None Hematologic History: Reports: None Immunologic History: Reports: None Oncologic (Cancer) History: Reports: None Dermatologic History: Reports: Other (See Below) Other Dermatologic History: actinic keratosis, sqamous cell carcinoma - Past Surgical History Head Surgeries/Procedures: Reports: None HEENT Surgical History: Reports: Cataract Surgery Cardiovascular Surgical History: Reports: None Respiratory Surgical History: Reports: None GI Surgical History: Reports: Colonoscopy, EGD Female Surgical History: Reports: None Male Surgical History: Reports: None Endocrine Surgical History: Reports: None Neurological Surgical History: Reports: None Musculoskeletal Surgical History: Reports: None Oncologic Surgical History: Reports: None Dermatological Surgical History: - SUBSTANCE USE Smoking Status *Q: Former Smoker Tobacco Use Within Last Twelve Months: Cigarettes Recreational Drug Use History: No - HOME MEDS Home Medications: Home Meds Losartan Potassium [Cozaar] 50 mg PO DAILY 05/04/17 [History] Metoprolol Tartrate 25 mg PO BID 05/04/17 [History] [place]-3/DHA/Epa/Fish Oil [Fish Oil 1,000 mg Softgel] 1 cap PO DAILY 05/05/17 [ History] Ubidecarenone [Co Q-10] 1 cap PO DAILY 05/05/17 [History] Acetaminophen [Tylenol] 650 mg PO Q4H PRN #100 tablet 05/07/17 [Rx] Benzonatate [Tessalon Perle] 100 mg PO TID PRN #28 capsule 05/07/17 [Rx] Dextromethorphan/guaiFENesin [Robitussin DM] 10 ml PO Q6H PRN #240 cup 05/07/17 [Rx] Ferrous Sulfate 325 mg PO WITHBREAKFAST #100 tablet 05/07/17 [Rx] Bimatoprost [Lumigan 0.03% Ophth Soln] 1 drop EYEBOTH BEDTIME 05/19/17 [History] Clopidogrel [Plavix] 75 mg PO DAILY 05/19/17 [History] Tamsulosin [Flomax] 0.4 mg PO DAILY 05/19/17 [History] Umeclidinium [place] [Incruse Ellipta] 1 puff INH ASDIRECTED PRN 05/19/17 [ History] - CURRENT (IN HOUSE) MEDS Current Meds: Current Medications Lactated Ringer's (Ringers, Lactated) 1,000 mls @ 125 mls/hr IV ASDIRECTED MARGIE Stop: 05/22/17 23:00 Lidocaine/Sodium Bicarbonate (Buffered Lidocaine 1% In Ns 8.4%) 0.25 ml IV ONETIME PRN PRN Reason: Prior to IV Start Stop: 05/22/17 18:00 Sodium Chloride (Saline Flush) 10 ml FLUSH ASDIRECTED PRN PRN Reason: Keep Vein Open Stop: 05/22/17 18:00 Discontinued Medications Lidocaine HCl (Xylocaine-Mpf 1%) Confirm Administered Dose 4 mls @ as directed .ROUTE .STK-MED ONE Stop: 05/22/17 06:54 Propofol (Diprivan 20 Ml) Confirm Administered Dose 200 mg .ROUTE .STK-MED ONE Stop: 05/22/17 06:54 Propofol (Diprivan 20 Ml) Confirm Administered Dose 200 mg .ROUTE .STK-MED ONE Stop: 05/22/17 07:09
--- NOTE | 2017-05-22 09:25 | PCM.OPNOTE ---
- General Post-Op/Procedure Note Date of Surgery/Procedure: 05/22/17 Operative Procedure(s): colonoscopy with polypectomy Pre Op Diagnosis: rectal bleeding Post-Op Diagnosis: Same Anesthesia Technique: MAC Primary Surgeon: Bryan Irvin EBL in mLs: 0 Complications: None Condition: Good
--- NOTE | 2017-05-22 09:25 | PCM48HPAN ---
Post Anesthesia Note - EVALUATION WITHIN 48HRS OF ANESTHETIC Vital Signs in Normal Range: Yes Patient Participated in Evaluation: Yes Respiratory Function Stable: Yes Airway Patent: Yes Cardiovascular Function Stable: Yes Hydration Status Stable: Yes Pain Control Satisfactory: Yes Nausea and Vomiting Control Satisfactory: Yes Mental Status Recovered: Yes
[2017-05-22 10:14] VITALS: BP 131/77
--- NOTE | 2017-05-23 06:54 | OR ---
DATE OF OPERATION: 05/22/2017 SURGEON: Bryan Irvin MD PREOPERATIVE DIAGNOSIS: Rectal bleeding. POSTOPERATIVE DIAGNOSIS: Rectal bleeding. OPERATION PERFORMED: Colonoscopy to cecum with biopsy of tumor mass and polypectomy by cautery snare, 4 polyps. FINDINGS: At 40 cm, a saucer-shaped lesion measuring approximately 2 to 3 cm across, which was firm, consistent with possible cancer. Biopsies were taken of this area. At 32 cm, there was a 2-cm polyp on the stalk, and this was removed completely and retrieved. A third polyp was at 28 cm, was diminutive. It was removed with cautery snare like the one before it and was retrieved. Fourth polyp was noted in the rectum, was diminutive, and it was removed with cautery snare and retrieved. The final polyp was just at the anal verge, and this was removed and retrieved. It was also diminutive and sent to pathology. There were also internal hemorrhoids, the source of his rectal bleeding. There were no angiodysplasias or diverticulum. ANESTHESIA: Done under IV sedation. DESCRIPTION OF PROCEDURE: The patient was taken to the operating room, placed in a supine position, connected to monitoring equipment, given IV sedation, and placed in left lateral position. Perianal area was inspected, some prolapsing external hemorrhoids, which were reduced. Rectal exam showed good sphincter tone. Video Olympus colonoscope was then introduced into the rectum and threaded up without problem to the cecum, where the appendicular orifice and ileocecal valve were noted. Prep was excellent. [place] cleansing score grade A. The scope was slowly withdrawn showing the cecum, ascending colon, transverse colon, descending colon, sigmoid colon, and rectum. Retroflexed view was done. A tumor mass was noted, as described above, at 40 cm. The surface showed abnormal vessels that bled easy, and this was biopsied a number of times. At 28 cm, a polyp on a large stalk, about 2 cm in size, was noted. This was lassoed with cautery snare, removed, retrieved and sent to pathology. It was located at 32 cm from the anal verge. The other polyp at 28 cm from the anal verge was also removed by cautery snare. It was diminutive. A third polyp was noted at the rectum, and this was removed by cautery snare and sent to pathology. The final polyp was noted just in the anal verge, and this was removed by cautery snare, retrieved and sent to pathology. The patient tolerated the procedure and was sent to recovery room in a stable condition. Specimen sent to pathology in a labeled container. The patient will be followed up in the clinic. ESTIMATED BLOOD LOSS: MMODAL /[id number]
== END 2017-05-22 10:10 | disposition home or self-care (01) ==
LOC: JD.SDS 06:37
PROVIDERS: ATTEND Surgery
DX: C18.9 Malignant neoplasm of colon, unspecified (principal); D12.6 Benign neoplasm of colon, unspecified; D12.8 Benign neoplasm of rectum; K64.4 Residual hemorrhoidal skin tags; L57.0 Actinic keratosis; M19.90 Unspecified osteoarthritis, unspecified site; J44.9 Chronic obstructive pulmonary disease, unspecified; H40.9 Unspecified glaucoma; E78.5 Hyperlipidemia, unspecified; I10 Essential (primary) hypertension; Z95.5 Presence of coronary angioplasty implant and graft; Z98.890 Other specified postprocedural states; Z79.899 Other long term (current) drug therapy; Z79.02 Long term (current) use of antithrombotics/antiplatelets; Z88.8 Allergy status to other drugs, medicaments and biological substances; Z87.891 Personal history of nicotine dependence; Z80.0 Family history of malignant neoplasm of digestive organs
CPT/HCPCS: 45385; J7120; J2704

== ENCOUNTER 2018-08-20 07:04 | Day surgery (SDC) | payer MEDICARE, OTHER ==
[~2018-08-20 07:04] MED LIST changes: +Lidocaine 1%/Sod Bicarbonate in NS 8.4% 1 ML Syringe IDERM PRN; -Lidocaine 1%/Sod Bicarbonate in NS 8.4% 1 ML Syringe IV PRN; +Propofol 200 MG/20 ML SDV ONE
[2018-08-20] MEDS ORDERED: Albuterol 0.083% 2.5 MG/3 ML Neb Soln NEB ONE (07:30)
--- NOTE | 2018-08-20 07:37 | PCM.PREANE ---
Preanesthetic Assessment - Anesthesia/Transfusion/Family Hx Anesthesia History: Prior Anesthesia Without Reaction Family History of Anesthesia Reaction: No Transfusion History: Prior Transfusion Without Reaction Intubation History: Unknown - Review of Systems General: No Symptoms, Other (this aspirin this am) Pulmonary: Shortness of Breath, Wheezing, Other (COPD with 50+ year smoking history, sats this am 88-89% on RA, awaiting albuterol tx) Cardiovascular: Other (chronic ishemic heart disease, carotid stentsx2, HTN, ) Gastrointestinal: Other (s/p colon resection 05/2017, peptic ulcer disease) Neurological: No Symptoms Other: Reports: None - Physical Assessment NPO Status Date: 08/19/18 NPO Status Time: 20:30 Pulse: 70 O2 Sat by Pulse Oximetry: 89 Respiratory Rate: 20 Blood Pressure: 111/75 Weight: 62.2 kg ASA Class: 3 Mental Status: Alert & Oriented x3 Dentition: Reports: Normal Dentition Thyro-Mental Finger Breadths: 3 Mouth Opening Finger Breadths: 3 ROM/Head Extension: Full Lungs: Clear to Auscultation, Wheezing (albuterol treatment to be given, then reassess) Cardiovascular: Regular Rate, Regular Rhythm - Imaging/EKG Impressions: am EKG, shows sr with minimal ST elevation - Allergies Allergies/Adverse Reactions: Allergies Allergy/AdvReac Type Severity Reaction Status Date / Time [id number]-Xvj Reductase AdvReac Body Aches Verified 08/18/18 10:45 Inhibitor - Blood Blood Available: No Product(s) Available: None - Anesthesia Plan Beta Hortensia: Metoprolol Med Last Dose Date: 08/20/18 Med Last Dose Time: 06:00 - Acknowledgements Anesthesia Type Planned: MAC Pt an Appropriate Candidate for the Planned Anesthesia: Yes Alternatives and Risks of Anesthesia Discussed w Pt/Guardian: Yes Pt/Guardian Understands and Agrees with Anesthesia Plan: Yes PreAnesthesia Questionnaire HEENT History: Reports: Glaucoma Cardiovascular History: Reports: Heart Murmur, High Cholesterol, Hypertension, Stents, Other (See Below) Other Cardiovascular History: Stents put in in September 2010, chronic ischemic heart diease Respiratory History: Reports: COPD, SOB Gastrointestinal History: Reports: GI Bleed, Hemorrhoids, PUD 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 History: Reports: None Musculoskeletal History: Reports: Arthritis Neurological History: Reports: None Psychiatric History: Reports: None Endocrine/Metabolic History: Reports: None Hematologic History: Reports: None Immunologic History: Reports: None Oncologic (Cancer) History: Reports: Squamous Cell Carcinoma Dermatologic History: Reports: Other (See Below) Other Dermatologic History: actinic keratosis, sqamous cell carcinoma - Past Surgical History Head Surgeries/Procedures: Reports: None HEENT Surgical History: Reports: Cataract Surgery Cardiovascular Surgical History: Reports: None Respiratory Surgical History: Reports: None GI Surgical History: Reports: Colonoscopy, EGD, Other (See Below) Other GI Surgeries/Procedures: intestinal resection Female Surgical History: Reports: None Male Surgical History: Reports: None Endocrine Surgical History: Reports: None Neurological Surgical History: Reports: None Musculoskeletal Surgical History: Reports: None Oncologic Surgical History: Reports: None - SUBSTANCE USE Smoking Status *Q: Former Smoker Recreational Drug Use History: No - HOME MEDS Home Medications: Home Meds Losartan Potassium [Cozaar] 50 mg PO DAILY 05/04/17 [History] Metoprolol Tartrate 25 mg PO BID 05/04/17 [History] [place]-3/DHA/Epa/Fish Oil [Fish Oil 1,000 mg Softgel] 1 cap PO DAILY 05/05/17 [ History] Ubidecarenone [Co Q-10] 100 mg PO DAILY 05/05/17 [History] Dextromethorphan/guaiFENesin [Robitussin DM] 10 ml PO Q6H PRN #240 cup 05/07/17 [Rx] Bimatoprost [Lumigan 0.03% Ophth Soln] 1 drop EYEBOTH BEDTIME 05/19/17 [History] Tamsulosin [Flomax] 0.4 mg PO DAILY 05/19/17 [History] Umeclidinium [place] [Incruse Ellipta] 1 puff INH DAILY 05/19/17 [History] Aspirin [[place] Aspirin] 81 mg PO DAILY 08/18/18 [History] Colestipol [Colestipol HCl] 2 gm PO BID 08/18/18 [History] Multivitamin [Daily Multiple Vitamin] 1 tab PO DAILY 08/18/18 [History] - CURRENT (IN HOUSE) MEDS Current Meds: Current Medications Lactated Ringer's (Ringers, Lactated) 1,000 mls @ 125 mls/hr IV ASDIRECTED MARGIE Stop: 08/20/18 23:00 Lidocaine/Sodium Bicarbonate (Buffered Lidocaine 1% In Ns 8.4%) 0.25 ml IDERM ONETIME PRN PRN Reason: Prior to IV Start Stop: 08/20/18 18:00 Sodium Chloride (Saline Flush) 10 ml FLUSH ASDIRECTED PRN PRN Reason: Keep Vein Open Stop: 08/20/18 18:00 Discontinued Medications Albuterol (Proventil Neb Soln) 2.5 mg NEB ONETIME ONE Stop: 08/20/18 07:31 Propofol (Diprivan 20 Ml) Confirm Administered Dose 200 mg .ROUTE .STK-MED ONE Stop: 08/20/18 07:05
--- NOTE | 2018-08-20 08:49 | PCM.OPNOTE ---
- General Post-Op/Procedure Note Date of Surgery/Procedure: 08/20/18 Operative Procedure(s): colonoscopy to cecum Pre Op Diagnosis: rising CEA Post-Op Diagnosis: Same Anesthesia Technique: MAC Primary Surgeon: Bryan Irvin EBL in mLs: 0 Complications: None Condition: Good
--- NOTE | 2018-08-20 08:52 | PCM48HPAN ---
Post Anesthesia Note - EVALUATION WITHIN 48HRS OF ANESTHETIC Vital Signs in Normal Range: Yes Patient Participated in Evaluation: Yes Respiratory Function Stable: Yes Airway Patent: Yes Cardiovascular Function Stable: Yes Hydration Status Stable: Yes Pain Control Satisfactory: Yes Nausea and Vomiting Control Satisfactory: Yes Mental Status Recovered: Yes Pulse Rate: 68 SaO2: 94 Resp Rate: 20 Temperature: 37.1 C Blood Pressure: 124/59
[2018-08-20 09:37] VITALS: BP 123/67
--- NOTE | 2018-08-21 07:12 | OR ---
DATE OF OPERATION: 08/20/2018 SURGEON: Bryan Irvin MD PREOPERATIVE DIAGNOSIS: Rising CEA, and a personal history of colon cancer. POSTOPERATIVE DIAGNOSIS: Rising CEA, and a personal history of colon cancer. OPERATION PERFORMED: Colonoscopy to cecum done under IV sedation. FINDINGS: Normal study. DESCRIPTION OF PROCEDURE: The patient was taken to the treatment room, placed in a supine position connected to monitoring equipment, given IV sedation. The patient was placed in left lateral position. Perianal area was inspected and was normal. Rectal exam showed poor sphincter tone. A video Olympus colonoscope was then introduced into the rectum and threaded up without problem to the cecum, where the appendicular orifice was noted. Prep was excellent. [place] cleansing score grade A. Scope was slowly withdrawn showing the cecum, ascending colon, transverse colon, descending colon, portion of sigmoid and rectum. The scope was then advanced back up to the splenic flexure and slowly withdrawn. His left side of the colon was normal. The patient tolerated the procedure, was sent to recovery room in a stable condition to be followed up as needed in the clinic. ANESTHESIA: ESTIMATED BLOOD LOSS: MMODAL /[id number]
== END 2018-08-20 09:25 | disposition home or self-care (01) ==
LOC: JD.SDS 07:04
PROVIDERS: ATTEND Surgery
DX: R97.0 Elevated carcinoembryonic antigen [CEA] (principal); I25.9 Chronic ischemic heart disease, unspecified; E78.5 Hyperlipidemia, unspecified; J44.9 Chronic obstructive pulmonary disease, unspecified; D64.9 Anemia, unspecified; K27.9 Peptic ulcer, site unspecified, unspecified as acute or chronic, without hemorrhage or perforation; K40.90 Unilateral inguinal hernia, without obstruction or gangrene, not specified as recurrent; N40.0 Benign prostatic hyperplasia without lower urinary tract symptoms; Z88.8 Allergy status to other drugs, medicaments and biological substances; Z90.49 Acquired absence of other specified parts of digestive tract; Z87.891 Personal history of nicotine dependence; Z85.038 Personal history of other malignant neoplasm of large intestine; Z80.0 Family history of malignant neoplasm of digestive organs; Z79.82 Long term (current) use of aspirin; Z79.899 Other long term (current) drug therapy
CPT/HCPCS: 45378; 93005; 94640; J2704; J7120